=== PATIENT | female | born 1955 | race Caucasian/White ===

== ENCOUNTER 2020-01-24 12:09 | Outpatient (RCR) | payer BC, SELFPAY ==
[2020-01-24 12:12] VITALS: BMI 29.4
== END 2020-03-08 14:47 | disposition home or self-care (01) ==
LOC: ANHWOC 12:09
PROVIDERS: PCP Internal Medicine; Visit Provider Internal Medicine
DX: L97.919 Non-pressure chronic ulcer of unspecified part of right lower leg with unspecified severity (principal); L97.928 Non-pressure chronic ulcer of unspecified part of left lower leg with other specified severity
CPT/HCPCS: 99213; G0463

== ENCOUNTER 2020-01-25 11:08 | Outpatient (CLI) | payer BC, SELFPAY | END 2020-01-25 11:09 | disposition home or self-care (01) | PROVIDERS: PCP Internal Medicine; Visit Provider Internal Medicine | DX: D50.9 Iron deficiency anemia, unspecified (principal) | CPT/HCPCS: 96365; 96366; J1756; J7050 ==

== ENCOUNTER 2020-01-28 11:04 | Outpatient (CLI) | payer BC, SELFPAY ==
[2020-01-28] MEDS: IRON SUCROSE COMPLEX 250 MG in SODIUM CHLORIDE 0.9% IV 250 ML 125 MG IVPB (11:51)
--- NOTE | 2020-01-28 13:51 | PC.NURSE ---
Pt discharged to home per wc with daughter.
== END 2020-01-28 11:05 | disposition home or self-care (01) ==
LOC: CHSTREATRM 11:05
PROVIDERS: PCP Internal Medicine; Visit Provider Internal Medicine
DX: D50.9 Iron deficiency anemia, unspecified (principal)
CPT/HCPCS: 96365; 96366; J1756; J7050

== ENCOUNTER 2020-02-03 17:50 | Emergency (ER) | payer BC, SELFPAY ==
--- NOTE | ~2020-02-03 | XR_ITS ---
XR tibia fibula RT 2V, XR tibia fibula LT 2V 02/03/2020 19:22 Indication: Gangrene Procedure: 2 views right and left tibia/fibula Comparison: No prior studies for comparison. Findings: There is soft tissue gas lateral to the mid aspect of the left fibula. No foreign bodies. N o acute fracture or traumatic malalignment. No osteolytic or blastic lesions are seen. The knees and ankles are unremarkable. Impression: 1: No acute bone or joint abnormality. Soft tissue gas lateral to the mid aspect of the left fibula w hich may represent cellulitis or laceration. Reviewed, dictated and finalized at location A. Impression: 1: No acute bone or joint abnormality. Soft tissue gas lateral to the mid aspec t of the left fibula which may represent cellulitis or laceration. Impression: 1: No acute bone or joint abnormality. Soft tissue gas lateral to the mid aspec t of the left fibula which may represent cellulitis or laceration.
[2020-02-03 18:02] VITALS: BP 125/90; PULSE 91; RESP 16; TEMP 36.3; O2SAT 100
--- NOTE | 2020-02-03 18:58 | ED.LOWEXIN ---
HPI - Extremity Injury (Lower) General Chief Complaint: Extremity Injury, Lower Stated Complaint: infected lower legs Time Seen by Provider: 02/03/20 18:57 Source: patient and RN notes reviewed Mode of arrival: ambulatory Limitations: no limitations History of Present Illness HPI Narrative: A 64 y/o female with a hx of CHF, A fib on eliquis, HTN, Type II DM, presents to the ED with a worsening painful wounds to her BLE. She states that she first developed these wounds 4-5 months ago and that she has been having home health and seeing wound care since. She reports that home health came out for her weekly visit today and thought that her wounds had worsened, so they told her to come to the ED. The pt notes that the erythema and pain have gotten more severe. She also notes that her BS's have been between 100-200. SHe denies any fevers, chills, sweats, CP, or SOB. Pt denies ever being hospitalized for these wounds. She has never been seen in this hospital before. MD complaint: other (Painful wounds to BLE) Onset (ago): month(s) (4-5 weeks but have worsened over the past week) Type of Injury: unknown Associated symptoms: other (worsening erythema) Other symptoms: none Related Data Home Medications Medication Instructions Recorded Confirmed apixaban [Eliquis] 2.5 mg PO BID 01/24/20 01/24/20 aspirin [Adult Low Dose Aspirin] 81 mg PO DAILY 01/24/20 01/24/20 atorvastatin 20 mg PO HS 01/24/20 01/24/20 carvedilol 6.25 mg PO BID 01/24/20 01/24/20 dapagliflozin [Farxiga] 5 mg PO DAILY 01/24/20 01/24/20 furosemide 60 mg PO DAILY 01/24/20 01/24/20 insulin NPH isoph U-100 human 10 unit SUBCUT BID 01/24/20 01/24/20 [Novolin N NPH U-100 Insulin] isosorbide mononitrate 30 mg PO DAILY 01/24/20 01/24/20 levothyroxine [Synthroid] 125 mcg PO DAILY 01/24/20 01/24/20 nystatin 1 applic TOPICAL TID 01/24/20 01/24/20 ascorbic acid (vitamin C) 1,000 mg PO DAILY 02/03/20 hydrocodone-acetaminophen tablet 02/03/20 multivitamin,lw-zajn-smszcybp tablet 02/03/20 [Thera-M] Allergies Allergy/AdvReac Type Severity Reaction Status Date / Time No Known Allergies Allergy Verified 02/03/20 20:10 Review of Systems Review of Systems: Narrative: CONSTITUTIONAL: Denies fever, chills, or sweats. CARDIOVASCULAR: Denies chest pain. RESPIRATORY: Denies dyspnea. SKIN: Reports worsening painful wounds and erythema to her BLE. All systems reviewed & are unremarkable except as noted in HPI and below PMFSH Past Medical History Medical History (Updated 02/03/20 @ 22:38 by Yazmin Clark MD) Atrial fibrillation Congestive heart failure DM (diabetes mellitus) Hypertension Medical history unknown Surgical History Surgical History (Updated 02/03/20 @ 19:15 by Gopi Henderson) Surgical history unknown Social History Social History (Updated 02/03/20 @ 19:15 by Gopi Henderson) Smoking status: Unknown if ever smoked Gender identity (if verbalized by the patient): Female Exam Narrative: Exam Narrative: GENERAL: Awake, alert, conversant HEAD: Normocephalic, atraumatic. EYES: PERRLA and EOMI. ENT: Nares clear, no rhinorrhea or epistaxis. Mucous membranes moist. NECK: Supple. CHEST: Clear to auscultation. No respiratory distress. HEART: Regular rate and rhythm. No murmur heard. Normal peripheral pulses. ABDOMEN: Soft, nontender, nondistended, normal active bowel sounds. EXTREMITIES: Decreased range of motion in the bilateral lower extremities. There are chronic ulcerations of the bilateral lower extremities, with excoriations present bilaterally, black eschar present bilaterally, clear, weeping fluid, malodorous discharge. No purulent discharge. Pain with movement. No crepitus. Intact sensation distally. DP pulses are 1+ bilaterally. SKIN: Sallow appearing, dry NEURO: No focal deficits. Alert and oriented x3 Course Course Emergency Course: Patient presented to the emergency department for evaluation of worsening bilateral lower extremity wounds. Patient
[2020-02-03 19:39] LABS: Basophils Absolute Auto 0.1 K/mm3 (0.0-0.1); Basophils Percent Auto 0.5 % (0.2-1.2); Eosinophils Absolute Auto 0.1 K/mm3 (0-0.3); Eosinophils Percent Auto 0.7 % (0-4.4); Immature Granulocyte Absolute 0.08 K/mm3 (0.00-0.031); Immature Granulocyte Percent A 0.8 % (0-0.5); Lymphocytes Absolute Auto 0.76 K/mm3 (0.9-3.2); Lymphocytes Percent Auto 7.3 % (18.3-44.2); Mean Corpuscular HGB Conc 26.2 g/dl (32-36); Mean Corpuscular Hemoglobin 23.7 pg (26-34); Mean Corpuscular Volume 90.3 fl (80-100); Mean Platelet Volume 11.4 fl (7.4-10.4); Monocytes Absolute Auto 1.3 K/mm3 (0.1-0.6); Monocytes Percent Auto 12.4 % (2.6-8.5); Neutrophils Absolute Auto 8.2 K/mm3 (1.3-6.7); Neutrophils Percent Auto 78.3 % (45.5-73.1); Platelet Count Result 271 k/mm3 (150-375); Red Blood Count 4.65 M/mm3 (4.2-5.4); Red Cell Distribution Width 29.6 % (11.5-14.5); White Blood Count 10.4 K/mm3 (4.5-10.0)
[2020-02-03 19:40] VITALS: BP 121/83; PULSE 81; RESP 16; O2SAT 96
[2020-02-03 19:47] LABS: Hypochromasia 1+ (NORMAL); Ovalocytes 1+ (NORMAL); Platelet Estimate Adequate (Adequate)
[2020-02-03 19:51] LABS: Blood Urea Nitrogen 49 mg/dL (7-17); Calcium 8.8 mg/dL (8.4-10.2); Carbon Dioxide 23 mmol/L (22-30); Chloride 102 mmol/L (98-107); Estimated CRCL calculation 41 ml/min; Estimated Glomerular Filt Rate 50; Glucose 215 mg/dL (65-105); Potassium 4.7 mmol/L (3.4-5.0); Sodium 133 mmol/L (137-145)
[2020-02-03 19:54] LABS: INR 1.5; Prothrombin Time 17.4 Seconds (11.1-14.7)
[2020-02-03 19:55] LABS: Partial Thromboplastin Time 33.1 SECONDS (22.3-36.8)
[2020-02-03 20:04] LABS: Erythrocyte Sedimentation Rate 13 mm/hr (0-20)
[2020-02-03 20:47] LABS: CRP 4.8 mg/dL (<1.0)
[2020-02-03 22:45] VITALS: BP 122/92; PULSE 102; RESP 23; O2SAT 97
--- NOTE | 2020-02-03 22:52 | PC.NURSE ---
Addendum entered by Diane Evans 02/03/20 23:15: Cancelled Rom @2314. Called [facility]...declined Called [facility]...ETA 45-60 minutes. Addendum entered by Diane Evans 02/03/20 22:57: Rom called with update 45-60 minutes. Original Note: Called [facility] to transport patient to [facility] ... ETA 20 minutes.
[2020-02-04 00:22] VITALS: BP 138/82; PULSE 74; RESP 16; O2SAT 100
== END 2020-02-04 00:22 | disposition short-term general hospital (02) ==
PROVIDERS: Emergency Provider Emergency Medicine; PCP Internal Medicine
DX: E11.52 Type 2 diabetes mellitus with diabetic peripheral angiopathy with gangrene (principal); I96 Gangrene, not elsewhere classified; I48.91 Unspecified atrial fibrillation; I50.9 Heart failure, unspecified; Z79.01 Long term (current) use of anticoagulants; Z79.82 Long term (current) use of aspirin; Z79.4 Long term (current) use of insulin; I11.0 Hypertensive heart disease with heart failure
CPT/HCPCS: 36415; 73590; 80048; 85025; 85610; 85652; 85730; 86140; 86850; 86900; 86901; 87070; 87077; 87186; 87205; 96365; 99285; A9270; J2543

== ENCOUNTER 2020-06-25 21:49 | Emergency (ER) | payer BC, SELFPAY ==
--- NOTE | ~2020-06-25 | XR_ITS ---
EXAMINATION: XR chest 1V portable INDICATION: Shortness of breath TECHNIQUE: Portable AP chest at 2218 hours COMPARISON: 04/27/2019 FINDINGS: There is stable cardiomegaly. A mild diffuse interstitial pattern is present. There are bib asilar airspace opacities. A small right pleural effusion is noted. IMPRESSION: 1. Cardiomegaly with mild pulmonary edema. 2. Small right pleural effusion. 3. Bibasilar airspace opacities, likely atelectasis. Reviewed, dictated and finalized at location A.
--- NOTE | ~2020-06-25 | XR_ITS ---
EXAMINATION: XR femur RT min 2V INDICATION: Pain after fall TECHNIQUE: Three views of the right femur are obtained. COMPARISON: None available FINDINGS: There is an acute, traumatic, closed, intertrochanteric fracture of the right femur. Hip so ft tissue swelling is noted. There are changes of above the knee amputation. Calcified atherosclerosi s is noted. IMPRESSION: 1. Intertrochanteric right femur fracture. Reviewed, dictated and finalized at location A.
--- NOTE | 2020-06-25 21:57 | ED.FALL ---
HPI - Fall General Chief Complaint: Fall Stated Complaint: EMS Arrival Time Seen by Provider: 06/25/20 21:57 Source: patient and EMS Mode of arrival: EMS Limitations: physical limitation History of Present Illness HPI Narrative: Patient was trying to move from the toilet back to her wheelchair. She says she slipped and fell onto her right xgooq-xmz-setw amputation. She has bilateral lower extremity ynssf-qmy-phnj amputations. She also has been complaining of some bloating and gas buildup in her abdomen. And she has been feeling more short of breath recently. She did not hit her head there was no loss of consciousness. MD complaint: fall Onset (ago): minute(s) (30) Fall from: wheelchair Fall witnessed: yes, by family Place fall occurred: home Loss of consciousness: none Symptoms prior to fall: none Context: tripped/slipped Location of injury: other Related Data Home Medications Medication Instructions Recorded Confirmed apixaban [Eliquis] 5 mg PO BID 01/24/20 06/25/20 aspirin [Adult Low Dose Aspirin] 81 mg PO DAILY 01/24/20 06/25/20 atorvastatin 20 mg PO HS 01/24/20 06/25/20 carvedilol 6.25 mg PO BID 01/24/20 06/25/20 dapagliflozin [Farxiga] 5 mg PO DAILY 01/24/20 06/25/20 furosemide 60 mg PO DAILY 01/24/20 06/25/20 insulin NPH isoph U-100 human See Rx Instructions .ROUTE .COMPLEX 01/24/20 06/25/20 [Novolin N NPH U-100 Insulin] levothyroxine [Synthroid] 125 mcg PO DAILY 01/24/20 06/25/20 multivitamin,do-ouux-xdrpjwmn 1 tablet PO DAILY 02/03/20 06/25/20 [Thera-M] calcitriol 0.25 mcg PO 3XW 06/25/20 06/25/20 gabapentin 300 mg PO DAILY 06/25/20 06/25/20 insulin aspart U-100 [Novolog 5 unit SUBCUT [facility] 06/25/20 06/25/20 U-100 Insulin aspart] Allergies Allergy/AdvReac Type Severity Reaction Status Date / Time No Known Allergies Allergy Verified 02/03/20 20:10 Review of Systems Constitutional: Constitutional: Reports no additional constitutional complaints Eyes: Eyes: Reports no additional eye complaints ENT: Reports system reviewed and no additional complaints, except as documented Cardiovascular: Cardiovascular: Reports no additional cardiovascular complaints Respiratory: Respiratory: Reports dyspnea Gastrointestinal: Gastrointestinal: Reports bloating Genitourinary: Genitourinary: Reports no additional female genitourinary complaints Musculoskeletal: Musculoskeletal: Reports no additional musculoskeletal complaints Integumentary/Breasts: Skin/Breast: Reports system reviewed and no additional complaints, except as docu Neurologic: Reports system reviewed and no additional complaints, except as documented Psychiatric: Psychiatric: Reports no additional psychiatric complaints Endocrine: Endocrine: Reports no additional endocrine complaints PMFSH Past Medical History Medical History (Updated 06/26/20 @ 01:11 by Jag Lemos MD) Atrial fibrillation Congestive heart failure DM (diabetes mellitus) Hypertension Hypothyroidism Surgical History Surgical History (Updated 06/25/20 @ 22:09 by Jag Lemos MD) H/O tubal ligation History of appendectomy History of section Hx of cholecystectomy S/P bilateral above knee amputation Social History Social History (Updated 06/25/20 @ 22:06 by Jag Lemos MD) Alcohol intake: never Substance use: never Gender identity (if verbalized by the patient): Female Sexual Orientation (if Verbalized by the Patient): Straight or Heterosexual Exam Const: General: healthy appearing, no acute distress and alert Nutritional Appearance: well nourished and obese centrally obese Orientation/consciousness: patient oriented x3 HENMT: Head: normal to inspection Ears: external ears normal General nose exam: Normal external nose present Face and sinus: normal facial exam Mouth: Yes lip normal and Yes moist mucous membranes Eyes: Conjunctivae: conjunctivae normal Pupils: Equal, round and reactive pupils present EOM: EOMs intact
[2020-06-25 21:59] VITALS: BP 133/82; PULSE 72; RESP 16; TEMP 36.8; O2SAT 98
[2020-06-25 22:38] LABS: Basophils Absolute Auto 0.02 K/mm3 (0.00-0.10); Basophils Percent Auto 0.2 % (0.0-1.0); Eosinophils Absolute Auto 0.04 K/mm3 (0.02-0.50); Eosinophils Percent Auto 0.5 % (1.0-6.0); Hematocrit 41.5 % (35.0-49.0); Hemoglobin 11.9 g/dL (12.0-15.0); Immature Granulocyte Absolute 0.06 K/mm3 (0.00-0.00); Immature Granulocyte Percent A 0.7 % (0.0-0.0); Lymphocytes Absolute Auto 0.72 K/mm3 (1.10-4.50); Lymphocytes Percent Auto 8.9 % (18.0-42.0); Mean Corpuscular HGB Conc 28.7 g/dL (32.0-36.0); Mean Corpuscular Hemoglobin 24.1 pg (27.0-31.0); Mean Corpuscular Volume 84.2 fL (78.0-102.0); Mean Platelet Volume 11.6 fl (9.2-11.8); Monocytes Absolute Auto 0.81 K/mm3 (0.10-0.90); Monocytes Percent Auto 10.1 % (2.0-11.0); Neutrophils Absolute Auto 6.4 K/mm3 (1.7-7.2); Neutrophils Percent Auto 79.6 % (50.0-70.0); Platelet Count Result 252 K/mm3 (150-420); Red Blood Count 4.93 M/mm3 (4.20-5.40); Red Cell Distribution Width 18.6 % (11.6-14.4); White Blood Count 8.1 K/mm3 (4.8-10.8)
[2020-06-25 22:40] LABS: Alanine Aminotransferase 24 U/L (14-59); Albumin Level 3.7 g/dL (3.4-5.0); Alkaline Phosphatase 148 U/L (46-116); Aspartate Amino Transferase 29 U/L (15-37); Blood Urea Nitrogen 31 mg/dL (7-18); Calcium 8.9 mg/dL (8.5-10.1); Carbon Dioxide 35 mmol/L (21-32); Estimated CRCL calculation 28 ml/min; Estimated Glomerular Filt Rate 32; Glucose 237 mg/dL (70-99); Total Protein 7.1 g/dL (6.4-8.2)
[2020-06-25 22:43] LABS: BNP 652 pg/mL (0-100)
[2020-06-25 23:14] LABS: Anion Gap 8.5 mmol/L (7-16); Chloride 98 mmol/L (98-107); Osmolality Calculated 300 mOsm/kg (285-295); Potassium 3.5 mmol/L (3.4-5.0); Sodium 138 mmol/L (137-145)
[2020-06-25 23:22] VITALS: BP 130/70; PULSE 77; RESP 18; O2SAT 92
--- NOTE | 2020-06-25 23:29 | PC.NURSE ---
Called to [facility], Dr Roque declined admit, patient family stated then they wanted to go to [facility] then.
[2020-06-25] MEDS: HYDROmorphone HCL 2 MG/ML VIAL 1 MG IV PUSH (23:43)
--- NOTE | 2020-06-25 23:47 | PC.NURSE ---
[facility] consulted
--- NOTE | 2020-06-26 00:03 | PC.NURSE ---
[facility] denied ability to manage the fracture, to call [facility] now
[2020-06-26 00:22] VITALS: BP 120/70; PULSE 70; RESP 18; O2SAT 92
--- NOTE | 2020-06-26 00:42 | PC.NURSE ---
[facility] accepted, no ambulance to transfer from [place], [place] or [facility] [place]. [facility] attempting to find crew.
[2020-06-26 01:36] VITALS: BP 118/60; PULSE 70; RESP 18; O2SAT 98
--- NOTE | 2020-06-26 01:36 | PC.NURSE ---
called [facility], a crew leaving [place], hope to be available soon.
--- NOTE | 2020-06-26 02:12 | PC.NURSE ---
ambulance enroute, family & patient aware
[2020-06-26 02:37] VITALS: BP 145/70; PULSE 70; RESP 18; TEMP 36.1; O2SAT 98
== END 2020-06-26 02:39 | disposition short-term general hospital (02) ==
PROVIDERS: Emergency Provider Emergency Medicine; PCP Internal Medicine
DX: S72.144A Nondisplaced intertrochanteric fracture of right femur, initial encounter for closed fracture (principal); W19.XXXA Unspecified fall, initial encounter; Z91.81 History of falling; Y92.012 Bathroom of single-family (private) house as the place of occurrence of the external cause; I48.20 Chronic atrial fibrillation, unspecified; I11.0 Hypertensive heart disease with heart failure; I50.9 Heart failure, unspecified; E03.9 Hypothyroidism, unspecified; E11.9 Type 2 diabetes mellitus without complications; Z89.611 Acquired absence of right leg above knee; Z89.612 Acquired absence of left leg above knee
CPT/HCPCS: 36415; 71045; 73552; 80053; 83880; 85025; 96374; 99283; 99285; J1170

== ENCOUNTER 2020-07-12 19:13 | Inpatient (IN) | payer BC, MEDICARE, SELFPAY ==
[2020-07-12] VITALS (7 sets, daily range): BP systolic 100–113; BP diastolic 58–67; PULSE 51–60; RESP 16–22; TEMP 36.4–36.7; O2SAT 93–100; BMI 82.5
--- NOTE | ~2020-07-12 | XR_ITS ---
EXAMINATION: XR chest 1V portable DATE: 07/12/2020 19:51 INDICATION: Shortness of breath, wheezing and crackles. TECHNIQUE: frontal view of the chest was obtained. COMPARISON: Chest radiograph dated 06/25/2020 FINDINGS: Cardiomegaly. Increased opacities in the lateral lower lung zones with blunting at the costophrenic a ngles, right greater than left. No pulmonary edema or pneumothorax. Unchanged density projecting over the heart at the medial left lung base, possibly coronary artery stenting. Moderate thoracic spondyl osis. IMPRESSION: 1. Opacities in the bilateral lower lung zones consistent with small bilateral pleural effusions and associated basilar atelectasis and/or pneumonia. 2. Cardiomegaly. Reviewed, dictated and finalized at location A.
--- NOTE | 2020-07-12 19:25 | ECG_ITS ---
Measurements Intervals [place] Rate: 55 P: DE: 0 QRS: 161 QRSD: 150 T: -36 QT: 433 QTc: 414 Interpretive Statements ATRIAL TACHYCARDIA WITH SLOW VENTRICULAR RESPONSE IVCD, CONSIDER ATYPICAL LBBB POOR R WAVE PROGRESSION, CONSIDER ANTERIOR INFARCT ABNORMAL ECG Electronically Signed On 07-13-2020 7:06:15 CDT by Gus Masterson D.O.
--- NOTE | 2020-07-12 19:31 | PC.NURSE ---
right hip incision, draining pink fluid, warm to touch
--- NOTE | 2020-07-12 20:03 | ED.GENADULT ---
HPI - General Adult General Chief complaint: Nausea/Vomiting/Diarrhea Stated complaint: AMB Source: patient and EMS History of Present Illness HPI narrative: Catrina is a 65F with a PMH of Afib, CAD s/p stent, CHF, hypothyroidism, asthma, HLD, HTN, DMII, PAD s/p bilateral above the knee amputation that was brought in by EMS. She started having increased SOB that started this morning. It is worse with lying flat and accompanied by swelling in her legs and some nausea but no vomiting. There was no chest pain, cough, syncope/near-syncope, hematuria, dysuria or diarrhea. She was reportedly satting in the 70's on 4-5L but when EMS showed up and put her on 4L by NC she was satting nearly 100%. She stated that she does not want intubated, does not want CPR, and does not want transferred even if she is having an LA. Her main goal is to be comfortable. Related Data Home Medications Medication Instructions Recorded Confirmed apixaban [Eliquis] 5 mg PO BID 01/24/20 07/12/20 aspirin [Adult Low Dose Aspirin] 81 mg PO DAILY 01/24/20 07/12/20 atorvastatin [Lipitor] 20 mg PO HS 01/24/20 07/12/20 carvedilol [Coreg] 6.25 mg PO BID 01/24/20 07/12/20 furosemide 80 mg PO DAILY 01/24/20 07/12/20 gabapentin 300 mg PO DAILY 06/25/20 07/12/20 insulin aspart U-100 [Novolog 5 unit SUBCUT [facility] 06/25/20 07/12/20 U-100 Insulin aspart] acetaminophen [Tylenol] 325 mg PO ONCE PRN 07/12/20 07/12/20 cyclobenzaprine 5 mg PO TID PRN 07/12/20 07/12/20 ferrous sulfate 325 mg PO DAILY 07/12/20 07/12/20 oxycodone [Roxicodone] 5 mg PO Q4H PRN 07/12/20 07/12/20 Allergies Allergy/AdvReac Type Severity Reaction Status Date / Time No Known Allergies Allergy Verified 02/03/20 20:10 Review of Systems Constitutional: Constitutional: Denies chills, Reports fatigue and Denies fever(s) Eyes: Eyes: Reports no additional eye complaints ENT: Reports system reviewed and no additional complaints, except as documented Cardiovascular: Cardiovascular: Reports as per HPI Respiratory: Respiratory: Reports as per HPI Gastrointestinal: Gastrointestinal: Reports nausea Genitourinary: Genitourinary: Reports no additional female genitourinary complaints Musculoskeletal: Musculoskeletal: Reports no additional musculoskeletal complaints Integumentary/Breasts: Comments: Does have some serosanguineous drainage from her sugical wounds but no erythema or purulent drainage. Neurologic: Reports system reviewed and no additional complaints, except as documented Psychiatric: Psychiatric: Reports no additional psychiatric complaints Endocrine: Endocrine: Reports no additional endocrine complaints Hematologic/Lymphatic: Hematologic/Lymphatic: Reports no additional hematologic/lymphatic complaints Allergic/Immunologic: Allergic/Immunologic: Reports no additional allergic/immunologic complaints [facility] Past Medical History Medical History Atrial fibrillation Congestive heart failure DM (diabetes mellitus) Hypertension Hypothyroidism Surgical History Surgical History H/O tubal ligation History of appendectomy History of section Hx of cholecystectomy S/P bilateral above knee amputation Social History Social History Alcohol intake: never Substance use: never Gender identity (if verbalized by the patient): Female Sexual Orientation (if Verbalized by the Patient): Straight or Heterosexual Exam Const: General: alert Orientation/consciousness: patient oriented x3 Limitations: No altered mental status Other: Mild distress. HENMT: Head: normal to inspection Eyes: Conjunctivae: conjunctivae normal Pupils: Equal, round and reactive pupils present Neck: Neck: normal visual inspection Chest: Chest palpation & inspection: normal inspection of the chest Resp: Effort & Inspection: labored and ta
--- NOTE | 2020-07-12 20:08 | PC.NURSE ---
noted thyroid meds not restarted in halfway, nebs & albuterol inhaler not restarted in halfway
[2020-07-12] MEDS: IPRATROPIUM 0.5 MG/ALBUTEROL SULFATE 2.5 MG AMPUL.NEB 3 ML INHALATION (20:09)
[2020-07-12 20:12] LABS: HCO3 ABG 15.9 mmol/L (23-29); Oxygen Content ABG 13.7 %vol (16.0-22.0); Oxyhemoglobin 95.5 % (94-100); PCO2 ABG 34.6 mmHg (35-45); PO2 ABG 100.9 mmHg (80-90); Total Hemoglobin 10.1 g/dL; pH ABG 7.28 (7.35-7.45)
[2020-07-12 20:19] LABS: Basophils Absolute Auto 0.04 K/mm3 (0.00-0.10); Basophils Percent Auto 0.2 % (0.0-1.0); Eosinophils Absolute Auto 0.06 K/mm3 (0.02-0.50); Eosinophils Percent Auto 0.3 % (1.0-6.0); Hematocrit 32.8 % (35.0-42.0); Hemoglobin 8.7 g/dL (11.7-13.8); Immature Granulocyte Absolute 0.17 K/mm3 (0.00-0.00); Immature Granulocyte Percent A 0.9 % (0.0-0.0); Lymphocytes Absolute Auto 0.64 K/mm3 (1.10-4.50); Lymphocytes Percent Auto 3.4 % (18.0-42.0); Mean Corpuscular HGB Conc 26.5 g/dL (32.0-36.0); Mean Corpuscular Hemoglobin 23.8 pg (27.0-31.0); Mean Corpuscular Volume 89.6 fL (78.0-102.0); Mean Platelet Volume 12.1 fl (9.2-11.8); Monocytes Absolute Auto 1.75 K/mm3 (0.10-0.90); Monocytes Percent Auto 9.3 % (2.0-11.0); Neutrophils Absolute Auto 16.2 K/mm3 (1.7-7.2); Neutrophils Percent Auto 85.9 % (50.0-70.0); Nucleated Red Blood Cells Absolute Auto 0.03 K/mm3 (0.00-0.00); Nucleated Red Blood Cells Perc 0.2 % (0-0.0); Platelet Count Result 453 K/mm3 (150-420); Red Blood Count 3.66 M/mm3 (4.20-5.40); White Blood Count 18.9 K/mm3 (4.8-10.8)
[2020-07-12 20:23] LABS: Device NASAL CANNULA; Modified Allen's Test Pass; Site Drawn RIGHT RADIAL
[2020-07-12 20:35] LABS: INR 1.7; Prothrombin Time 17.1 Seconds (9.64-11.0)
[2020-07-12 20:36] LABS: Lactic Acid 4.5 mmol/L (0.4-2.0)
[2020-07-12 20:38] LABS: BNP 1080 pg/mL (0-100)
[2020-07-12 20:42] LABS: Alanine Aminotransferase 25 U/L (14-59); Alkaline Phosphatase 150 U/L (46-116); Anion Gap 12 mmol/L (8-16); Aspartate Amino Transferase 42 U/L (15-37); Bilirubin,Total 2.4 mg/dL (0.00-1.00); Blood Urea Nitrogen 69 mg/dL (7-18); Calcium 8.2 mg/dL (8.5-10.1); Carbon Dioxide 21 mmol/L (21-32); Chloride 97 mmol/L (98-108); Estimated Glomerular Filt Rate 21; Glucose 198 mg/dL (70-99); Osmolality Calculated 296 mOsm/kg (285-295); Sodium 130 mmol/L (136-145); Total Protein 6.9 g/dL (6.4-8.2)
[2020-07-12 20:44] LABS: Potassium 7.6 mmol/L (3.5-5.1)
[2020-07-12 20:45] LABS: Thyroid Stimulating Hormone 28.13 uIU/mL (0.36-3.74); Troponin I 0.54 ng/mL (0.00-0.056)
--- NOTE | 2020-07-12 20:52 | PC.NURSE ---
MD with patient reviewing test, and their goals
--- NOTE | 2020-07-12 21:09 | PC.NURSE ---
patient has DNR & wanted comfort measures, family & her now discussing possible going to [facility] for 2nd opinion.
--- NOTE | 2020-07-12 21:23 | PC.NURSE ---
xeroform applied to surgical site, with abd dressing
--- NOTE | 2020-07-12 21:37 | PC.NURSE ---
family at bedside, talking to patient
--- NOTE | 2020-07-12 23:05 | ADMGEN ---
This patient, Catrina Aguilar, was admitted to 2nd Floor Room 208-2. Patient/family oriented to hospital policies and general routines including ID bracelet, bed and alarms, visiting hours, pain management, procedures, bathroom and other care routines, personal items, smoking policy, room service/diet, and visiting hours. Valuables list has been completed. Information on how to activate the Rapid Response Team has been discussed. Patient/Family are encouraged to report perceived risks to care and to ask questions if they do not understand what they are told or what they should do.
[2020-07-13 07:45] VITALS: BP 111/73; PULSE 53; RESP 18; TEMP 36.3; O2SAT 100
[2020-07-13] MEDS: FUROSEMIDE 40 MG TABLET 80 MG PO (09:27)
[2020-07-13] MEDS: GABAPENTIN 300 MG CAPSULE PO (09:27)
[2020-07-13] MEDS: CEFDINIR 300 MG CAPSULE PO (09:27)
[2020-07-13] MEDS: ACETAMINOPHEN 325 MG TABLET 650 MG PO (09:30)
--- NOTE | 2020-07-13 13:33 | PM.SD ---
Same Day Admit/Disch: HPI History of Present Illness Chief complaint: hyperkalemia sepsis chf Narrative: Catrina Aguilar is a 65 year old female that presented to [facility] ED with complaints of nausea vomiting diarrhea, and shortness of breath. Patient has a past medical history of C AD status post stent, AFib, CHF, hypothyroidism, asthma, HLD, hypertension, diabetes, CAD status post bilateral [id number]-[id number] amputation. patient is a poor historian information retrieved from medical records. patient shortness worsened with her lying flat she also has swelling in her lower stumps with some nausea and no vomiting. patient's troponin was elevated at 0.54 BNP at 1080 lactic acid of 4.5 total bili and AST also elevated potassium at 7.6 creatinine at 2.29 blood gas indicate metabolic acidosis. patient is currently transitioning into hospice. she will go home today on hospice [facility] Past Medical History Medical History Atrial fibrillation Congestive heart failure DM (diabetes mellitus) Hypertension Hypothyroidism Surgical History Surgical History H/O tubal ligation History of appendectomy History of section Hx of cholecystectomy S/P bilateral above knee amputation Social History Social History Smoking packs per day: 0.5 Smoking cigarettes per day: 10.0 Years smoked: 30 Smoking pack-years: 15.00 Smoking status: Former smoker Tobacco type: cigarettes Second hand tobacco smoke exposure: Yes Alcohol intake: never Substance use: never Substance use type: does not use Gender identity (if verbalized by the patient): Female Sexual Orientation (if Verbalized by the Patient): Straight or Heterosexual Spiritual care concerns: No Same Day Admit/Disch: Med Pre-admit Medications Home Medications Medication Instructions Recorded Confirmed Type lorazepam 0.5 mg PO Q2H PRN #30 tablet 07/13/20 Rx morphine 5 mg PO Q2H PRN #30 ml 07/13/20 Rx oxycodone [Roxicodone] 5 mg PO Q4H PRN #1 tablet 07/13/20 07/12/20 Rx Exam Narrative: Exam Narrative: General: lethargic with labored breathing HEENT: Oral mucosa moist. Oropharynx clear. Neck: Supple. Respiratory: labor with diminished breath sounds Cardiovascular: bradycardic Gastrointestinal: Abdomen is soft, nontender, and nondistended with positive bowel sounds. No organomegaly. Skin: Warm, dry, and slightly pale.. No rash or lesions on limited exam. Extremities: bilateral above the knee amputation, surgical incision to the hip Neurological: lethargic Psychiatric: lethargic but comfortable DS: Data Data Completed and Pending Labs on day of discharge: Labs from last 24 hours 07/13/20 07/12/20 07/12/20 10:20 19:54 19:54 WBC RBC Hgb Hct MCV MCH MCHC RDW Plt Count MPV Immature Gran % (Auto) Neut % (Auto) Lymph % (Auto) Park % (Auto) Eos % (Auto) Baso % (Auto) Lymph # (Auto) Park # (Auto) Eos # (Auto) Baso # (Auto) Abs Immat Gran (auto) Absolute Neuts (auto) Absolute Nucleated RBC Nucleated RBC % PT INR Puncture Site ABG pH ABG pCO2 ABG pO2 ABG PO2/FiO2 Ratio ABG HCO3 ABG O2 Saturation ABG O2 Content ABG Base Excess A-a Gradient Oxyhemoglobin Total Hemoglobin O2 Delivery Device O2 Liters/Min FiO2 Sodium Potassium Chloride Carbon Dioxide Anion Gap BUN Creatinine Estim Creat Clear Calc Estimated GFR Glucose Calculated Osmolality Lactic Acid Calcium Total Bilirubin AST ALT Alkaline Phosphatase Troponin I 0.54 H* B-Natriuretic Peptide Total Protein Albumin TSH 28.13 H SARS-CoV-2 RNA (RT-PCR) Pending 07/12/20 07/12/20 07/12/20 19:54 19:54 1
--- NOTE | 2020-07-13 15:30 | PC.NURSE ---
Patient to be discharged home. Patient and daughter aware. [facility] dropping off equipment off at house. Daughter will let nursing staff know when equipment has been delivered. Once delivered Ambulance will be paged to transport patient to home. Patient repositioned, currently resting quietly. call light at side.
--- NOTE | 2020-07-13 16:40 | PC.NURSE ---
[facility] here to transport patient home. All discharge instructions and education sent home with patient. [facility] nurse notified that patient is on her way home. Patients daughter took all of patient belongings home. No questions at discharge.Discharge summary Faxed to [facility]. Patient transferred to stretcher with 2ast. Left via stretcher accompanied by EMS.
[2020-07-14 02:52] LABS: SARS-CoV-2 RNA PCR Negative
== END 2020-07-13 16:40 | disposition hospice, home (50) | DRG 872 ==
LOC: CHSED 19:15 → CHS2ND 22:17
PROVIDERS: Nurse Practitioner; Admitting Provider Family Medicine; Emergency Provider Family Medicine; PCP Internal Medicine; Visit Provider Family Medicine
DX: A41.9 Sepsis, unspecified organism (principal); E87.2 Acidosis; I48.20 Chronic atrial fibrillation, unspecified; E87.5 Hyperkalemia; E11.51 Type 2 diabetes mellitus with diabetic peripheral angiopathy without gangrene; I11.0 Hypertensive heart disease with heart failure; I50.9 Heart failure, unspecified; I25.10 Atherosclerotic heart disease of native coronary artery without angina pectoris; J45.909 Unspecified asthma, uncomplicated; E03.9 Hypothyroidism, unspecified; E78.5 Hyperlipidemia, unspecified; Z51.5 Encounter for palliative care; Z89.612 Acquired absence of left leg above knee; Z89.611 Acquired absence of right leg above knee; Z79.01 Long term (current) use of anticoagulants
CPT/HCPCS: 36415; 36600; 71045; 80053; 82805; 83605; 83880; 84443; 84484; 85025; 85610; 87040; 87635; 88321; 93005; 94640; 99284; 99285; A9270; C9803; U0003